=== PATIENT | female | born 2000 | race Two or more races ===

== ENCOUNTER → 2021-01-13 | Outpatient (CLI) | payer OTHER | END | disposition home or self-care (01) | LOC: PRENATAL 13:47 | PROVIDERS: ATTEND Obstetrics & Gynecology Maternal & Fetal Medicine | DX: O35.0XX1 Maternal care for (suspected) central nervous system malformation in fetus, fetus 1 (principal); O35.3XX1 Maternal care for (suspected) damage to fetus from viral disease in mother, fetus 1; O98.512 Other viral diseases complicating pregnancy, second trimester; Z36.89 Encounter for other specified antenatal screening; Z3A.28 28 weeks gestation of pregnancy ==

== ENCOUNTER 2021-03-31 08:20 | Inpatient (IN) | payer OTHER ==
[~2021-03-31] VITALS: Ht 165.1 cm; Wt 2.7 kg
== END 2021-04-04 13:01 | disposition home or self-care (01) | DRG 788 ==
LOC: O/R 04-02 05:45 → LDR 04-02 07:00 → OB/GYN 04-02 13:08 → O/R 04-02 13:33 → OB/GYN 04-02 14:05
PROVIDERS: ADMIT Specialist; ATTEND Specialist
PROC: 4A1HXFZ Monitoring of Products of Conception, Cardiac Rhythm, External Approach (ICD-10-PCS; 2021-04-02)
PROC: 10D00Z1 Extraction of Products of Conception, Low, Open Approach (ICD-10-PCS; principal; 2021-04-02 07:00)
DX: O33.9 Maternal care for disproportion, unspecified (principal); O99.824 Streptococcus B carrier state complicating childbirth; Z3A.39 39 weeks gestation of pregnancy; Z37.0 Single live birth